=== PATIENT | male | born 1970 | race Caucasian/White ===

== ENCOUNTER 2023-11-14 08:14 | Emergency (ER) | payer BC ==
[2023-11-14] MEDS: Ketorolac 30 MG/ML SDV IVPUSH ONE (09:05)
[2023-11-14] MEDS: Tamsulosin 0.4 MG Cap.ER PO ONE (10:03)
== END 2023-11-14 10:04 | disposition home or self-care (01) ==
LOC: JP.ED 08:14
DX: N13.2 Hydronephrosis with renal and ureteral calculous obstruction (principal); I10 Essential (primary) hypertension; Z90.49 Acquired absence of other specified parts of digestive tract; Z79.899 Other long term (current) drug therapy
CPT/HCPCS: 74176; 96374; 99284; A9270; J1885